=== PATIENT | female | born 1990 | race Two or more races ===

== ENCOUNTER 2020-03-26 14:13 | Observation (INO) | payer MEDICAID ==
[2020-03-26] MEDS ORDERED: CITA-77 PO (14:51)
[2020-03-26] MEDS ORDERED: PREN-96 PO (14:51)
[2020-03-26] MEDS ORDERED: FERR-20 PO (14:53)
[2020-03-26] MEDS ORDERED: FIBECHW2 OR (14:53)
== END 2020-03-26 15:20 | disposition home or self-care (01) | DRG 566 ==
LOC: LDRP 14:13
PROVIDERS: ADMIT Obstetrics & Gynecology; ATTEND Obstetrics & Gynecology
DX: O40.3XX0 Polyhydramnios, third trimester, not applicable or unspecified (principal); O99.323 Drug use complicating pregnancy, third trimester; F12.10 Cannabis abuse, uncomplicated; R11.2 Nausea with vomiting, unspecified; Z3A.35 35 weeks gestation of pregnancy
CPT/HCPCS: 76818; 81002; G0378

== ENCOUNTER 2020-03-31 10:40 | Observation (INO) | payer MEDICAID ==
[~2020-03-31 10:40] MED LIST: CITA-77 PO; FERR-20 PO; FIBECHW2 OR; PREN-96 PO
== END 2020-03-31 11:28 | disposition home or self-care (01) | DRG 566 ==
LOC: LDRP 10:40
PROVIDERS: ADMIT Specialist; ATTEND Specialist
DX: O40.9XX0 Polyhydramnios, unspecified trimester, not applicable or unspecified (principal); Z3A.00 Weeks of gestation of pregnancy not specified
CPT/HCPCS: 76818; G0378

== ENCOUNTER 2020-04-21 09:55 | Observation (INO) | payer MEDICAID ==
[~2020-04-21] VITALS: Ht 170.2 cm; Wt 101.6 kg
== END 2020-04-21 13:05 | disposition home or self-care (01) | DRG 566 ==
LOC: LDRP 09:55
PROVIDERS: ADMIT Obstetrics & Gynecology; ATTEND Obstetrics & Gynecology
DX: O36.63X0 Maternal care for excessive fetal growth, third trimester, not applicable or unspecified (principal); O40.3XX0 Polyhydramnios, third trimester, not applicable or unspecified; Z3A.39 39 weeks gestation of pregnancy
CPT/HCPCS: 59025; 76818; 81002; G0378

== ENCOUNTER 2020-04-26 07:10 | Inpatient (IN) | payer MEDICAID ==
[~2020-04-26] VITALS: Ht 170.2 cm; Wt 101.6 kg
[2020-04-26] MEDS ORDERED: LACT. RINGERS/OXYTOCIN 20UNITS 1,000 ML IV SCH ×2 (08:35→09:00)
[2020-04-26] MEDS ORDERED: LACTATED RINGER'S 1,000 ML IV SCH (08:35)
[2020-04-26] MEDS ORDERED: METHYLERGONOVINE MALEATE 0.2 MG/ML AMP IM PRN ×2 (08:45→09:00)
[2020-04-26] MEDS ORDERED: miSOPROStol 50 MCG per PRE-CUT 1/2 TAB PO PRN ×2 (08:45→09:00)
[2020-04-26] MEDS ORDERED: CARBOPROST TROMETHAMINE 250 MCG/1ML VIAL IM PRN ×2 (08:45→09:00)
[2020-04-26] MEDS ORDERED: PHISODERM TOP SOLN 240ML BTL TOP PRN ×2 (08:45→09:00)
[2020-04-26] MEDS ORDERED: DERMOPLAST 60ML BOTTLE TOP PRN (08:45)
[2020-04-26] MEDS ORDERED: WITCH HAZEL-GLYCERIN PAD TOP PRN (08:45)
[2020-04-26] MEDS ORDERED: LIDOCAINE 1% (LOCAL ANESTH.) PF 5ml SDV IJ ONE ×2 (08:45→09:00)
[2020-04-26] MEDS: LACTATED RINGER'S 1,000 ML IV SCH ×2 (09:00→22:50)
[2020-04-26 09:37] LABS: Basophils # (auto) 0 10 ^3/uL (0-0.2); Basophils % (auto) 0.5 % (0.0-2.0); Eosinophils # (auto) 0.1 10 ^3/uL (0-0.8); Eosinophils % (auto) 1.2 % (0.0-7.0); Hematocrit 37.7 % (36.0-46.0); Hemoglobin 12.5 g/dL (12.2-16.2); Lymphocytes # (auto) 1.2 10 ^3/uL (0.4-5.4); Lymphocytes % (auto) 13.6 % (10.0-50.0); Mean Corpuscular Hemoglobin 29.1 pg (28.0-32.0); Mean Corpuscular Hgb Conc. 33.2 g/dL (32.0-36.0); Mean Corpuscular Volume 87.8 fL (80.0-100.0); Monocytes # (auto) 0.5 10 ^3/uL (0-1.3); Neutrophils # (auto) 6.7 10 ^3/uL (1.6-8.6); Neutrophils % (auto) 78.7 % (37.0-80.0); Platelet Count (auto) 227 10^3/uL (140-450); Red Blood Cells 4.29 10^6/uL (4.0-5.20); Red Cell Distribution Width 15.1 % (11.8-14.3); White Blood Cell 8.6 10^3/uL (4.4-10.8)
[2020-04-26 09:50] LABS: Urine Bacteria NONE SEEN /hpf (None Seen); Urine Blood 2+ /uL (Negative); Urine Specific Gravity 1.013 (1.001-1.035); Urine WBC 1 /hpf (0 - 5)
[2020-04-26 09:56] LABS: Albumin 2.6 g/dL (3.4-5.0); Calcium 8.9 mg/dL (8.5-10.1); INR 0.9 (0.9-1.15); Partial Thromboplastin Time 25.5 sec (23.64-32.05); Potassium 3.9 mmol/L (3.5-5.1)
[2020-04-26 09:57] LABS: Alcohol, Urine < 3.0 mg/dL (0-10); Amphetamine Screen, Urine NEGATIVE (NEGATIVE); Barbiturate Scree,Urine NEGATIVE (NEGATIVE); Benzodiazephine Screen, Urine NEGATIVE (NEGATIVE); Cannabinoid Screen, Urine POSITIVE (NEGATIVE); Cocaine Screen, Urine NEGATIVE (NEGATIVE); Opiate Scree,Urine NEGATIVE (NEGATIVE); Phencyclidine Screen, Urine NEGATIVE (NEGATIVE)
[2020-04-26 10:00] LABS: BUN/Creatinine Ratio 8.6; Bilirubin, Total 0.3 mg/dL (0.2-1.0); Total Protein 6.9 g/dL (6.4-8.2)
[2020-04-26] MEDS ORDERED: PROMETHAZINE HCL 25 MG/ML 1ML IV ONE (15:30)
[2020-04-26] MEDS ORDERED: BUTORPHANOL TARTRATE 2 MG/1 ML VIAL IV ONE (15:30)
[2020-04-26] MEDS ORDERED: LACTATED RINGER'S 1,000 ML IV ONE (18:26)
[2020-04-26] MEDS ORDERED: ePHEDrine SULFATE 50 MG/ML AMP IV ONE ×3 (18:30→20:00)
[2020-04-26] MEDS ORDERED: LIDOCAINE 2%HCL (LOCAL ANESTH.) INJ 20ML MDV ID ONE (18:30)
[2020-04-26] MEDS ORDERED: fentaNYL 200mCg/100ml W ROPIVA 100 ML EPI SCH ×4 (18:30→22:30)
[2020-04-26] MEDS ORDERED: ePHEDrine SULFATE 50 MG/ML AMP ONE (18:30)
[2020-04-26] MEDS ORDERED: NALOXONE HCL 0.4 MG/ML VIAL IV ONE ×3 (18:30→20:00)
[2020-04-26] MEDS ORDERED: fentaNYL 200mCg/100ml W ROPIVA 100 ML EPI ONE (18:31)
[2020-04-26] MEDS ORDERED: SODIUM CHLORIDE 0.9% 500 ML IV PRN (19:13)
[2020-04-27] VITALS (7 sets, daily range): BP systolic 91–106; BP diastolic 45–59
[2020-04-27] MEDS ORDERED: PENICILLIN G POT 5MIL/D5 50ML 50 ML IV ONE (04:00)
--- NOTE | 2020-04-27 05:45 | NUR ---
Respiratory note: RT PAGED OVERHEAD TO L&D RM 5 FOR DELIVERY. 1MIN 6, 5MIN 7, 10MIN 8.
[2020-04-27] MEDS ORDERED: PENICILLIN G POTASSIUM 2,500,000 UNITS in D5W 5% 50 ML IV SCH (08:00)
[2020-04-27] MEDS: ceFAZolin 1GM/50ML 50 ML IV SCH ×2 (08:21→16:18)
--- NOTE | 2020-04-27 10:15 | NUR ---
ATTEMPTED TO AMBULATE PATIENT TO BR, PT UNABLE TO SIT UP, APPEARS PALE AND DIAPHORETIC, PT STATES SHE CANNOT SIT UP WITHOUT FEELING DIZZY OR FEELING OF PASSING OUT. PT LAID DOWN IN BED. PT STATES SHE FEELS BETTER LYING DOWN.
--- NOTE | 2020-04-27 10:18 | NUR ---
STRAIGHT CATH PERFORMED 300ML CLEAR YELLOW URINE, PERICARE COMPLETED IN BED, PADS CHANGED.
--- NOTE | 2020-04-27 10:20 | NUR ---
DR CHO CALLED AND NOTIFIED OF PT BEING UNABLE TO SIT UP WITHOUT DIZZINESS, REVIEWED LOW BPS WITH MD AND THAT PATIENT HAS HAD CONTINUOUS FLUIDS. ORDER RECEIVED FOR STAT CBC, NS, AND TYPE AND CROSS 2 UNITS RBC'S.
[2020-04-27] MEDS ORDERED: SODIUM CHLORIDE 0.9% 1,000 ML IV SCH (10:30)
--- NOTE | 2020-04-27 10:35 | NUR ---
NS 0.9% STARTED AT 125ML/HR.
[2020-04-27 10:42] LABS: Basophils # (auto) 0.1 10 ^3/uL (0-0.2); Eosinophils # (auto) 0 10 ^3/uL (0-0.8); Hemoglobin 8.3 g/dL (12.2-16.2); Monocytes # (auto) 0.6 10 ^3/uL (0-1.3)
[2020-04-27 10:43] LABS: Basophils % (auto) 0.8 % (0.0-2.0); Hematocrit 24.8 % (36.0-46.0); Lymphocytes # (auto) 0.8 10 ^3/uL (0.4-5.4); Lymphocytes % (auto) 5.4 % (10.0-50.0); Mean Corpuscular Hemoglobin 29.3 pg (28.0-32.0); Mean Corpuscular Hgb Conc. 33.4 g/dL (32.0-36.0); Mean Corpuscular Volume 87.9 fL (80.0-100.0); Monocytes % (auto) 3.9 % (0.0-12.0); Neutrophils # (auto) 13.4 10 ^3/uL (1.6-8.6); Neutrophils % (auto) 89.9 % (37.0-80.0); Platelet Count (auto) 199 10^3/uL (140-450); Red Blood Cells 2.82 10^6/uL (4.0-5.20); Red Cell Distribution Width 15.1 % (11.8-14.3); White Blood Cell 14.9 10^3/uL (4.4-10.8)
--- NOTE | 2020-04-27 10:52 | NUR ---
DR CHO ON UNIT REVIEWED LABS AND B/P'S, ORDER RECEIVED TO GIVE 1 UNIT OF PRBC'S.
[2020-04-27] MEDS: IBUPROFEN 600 MG TAB PO PRN ×3 (12:23→19:37)
--- NOTE | 2020-04-27 13:10 | NUR ---
Ambulation: Patient OOB with standby assistance by RN. Patient ambulated to bedside chair with steady gait. Clean gown provided and bed linen changed. Patient ambulated back to bed with steady gait and no distress noted.
--- NOTE | 2020-04-27 13:30 | NUR ---
Sera from [employer] seen PTLeonid
--- NOTE | 2020-04-27 14:15 | NUR ---
REPORT TO BLAISE SUMNER RN
--- NOTE | 2020-04-27 15:17 | NUR ---
Ambulation: Patient OOB with standby assistance by RN. Patient ambulated to bathroom with weak gait. Patient able to void without difficulty. [employer] teaching provided with returned demonstration by patient. Clean gown provided and bed linen changed. Patient ambulated back to bed with steady gait and no distress noted.
--- NOTE | 2020-04-27 19:41 | NUR ---
Pt given flyer and educated on the risks of while having been tested positive for THC. Pt educated on how THC can affect the baby and that no amount is safe for baby. Pt verbalizes understanding.
[2020-04-27 20:32] LABS: Basophils # (auto) 0 10 ^3/uL (0-0.2); Hematocrit 24.5 % (36.0-46.0); Hemoglobin 8.2 g/dL (12.2-16.2); Monocytes # (auto) 0.9 10 ^3/uL (0-1.3); Monocytes % (auto) 5.5 % (0.0-12.0); Nucleated Red Blood Cells % 0.1 %; White Blood Cell 15.6 10^3/uL (4.4-10.8)
[2020-04-27 20:33] LABS: Basophils % (auto) 0.2 % (0.0-2.0); Eosinophils # (auto) 0.1 10 ^3/uL (0-0.8); Eosinophils % (auto) 0.4 % (0.0-7.0); Lymphocytes # (auto) 1.7 10 ^3/uL (0.4-5.4); Lymphocytes % (auto) 10.8 % (10.0-50.0); Mean Corpuscular Hemoglobin 29.1 pg (28.0-32.0); Mean Corpuscular Hgb Conc. 33.7 g/dL (32.0-36.0); Mean Corpuscular Volume 86.4 fL (80.0-100.0); Neutrophils # (auto) 12.9 10 ^3/uL (1.6-8.6); Neutrophils % (auto) 83.1 % (37.0-80.0); Platelet Count (auto) 182 10^3/uL (140-450); Red Blood Cells 2.83 10^6/uL (4.0-5.20); Red Cell Distribution Width 15.9 % (11.8-14.3)
[2020-04-27] MEDS ORDERED: TETANUS-DIPTH-ACEL PERTUSSIS 0.5ML SYR Tdap IM ONE (22:00)
[2020-04-27] MEDS: FERROUS SULFATE 325 MG TAB PO SCH (22:07)
[2020-04-28 01:53] LABS: RPR Non Reactive (Non Reactive)
[2020-04-28] MEDS: IBUPROFEN 600 MG TAB PO PRN ×2 (02:21→05:34)
[2020-04-28 03:12] VITALS: BP 92/53
[2020-04-28] MEDS: FERROUS SULFATE 325 MG TAB PO SCH ×2 (05:34→14:21)
[2020-04-28] MEDS: ceFAZolin 1GM/50ML 50 ML IV SCH (06:21)
--- NOTE | 2020-04-28 06:26 | NUR ---
See paper chart for meds given during [employer] down time from 2300 on 04/27/2020 to 0400 on 04/28/2020.
[2020-04-28] MEDS ORDERED: ESCI20TA51 PO (07:15)
[2020-04-28 07:18] VITALS: BP 94/53
[2020-04-28] MEDS: WITCH HAZEL-GLYCERIN PAD TOP PRN ×2 (07:33→18:40)
[2020-04-28] MEDS: DERMOPLAST 60ML BOTTLE TOP PRN ×2 (07:33→18:40)
--- NOTE | 2020-04-28 08:15 | NUR ---
dr. flores talked to mother of on plan of care double phototherapy for jaundice . mother of complies with plan of care and is formula feeding and understands all plan of care for double phototheraopy. gave formula to mother and she gave to infant at 0800 am
--- NOTE | 2020-04-28 08:45 | NUR ---
Assessment Patient is a 29-year old female who is alert and oriented. Social Service consult regarding positive THC on mom and baby on this admission. Nurse informed me patient and baby tested positive for THC. Discussed with patient UDS and source of positive results. Patient stated she consume edible THC during her last 5 months of due to nauseous. Patient resides with her mother Ramona and will assistance with baby upon discharge. Patient has all supplies as well as car seat for baby and will be bottle feed. Patient has medical insurance for herself and baby and will be following up with provider appt post discharge. Pt has transportation home upon discharge. Due to baby being positive for THC CPS will be contacted. Spoke to Ghazala with CPS. CPS Case Number is [id number].
--- NOTE | 2020-04-28 09:32 | NUR ---
Called Dr. Vines to make aware patient take medication lexpo 20 mg/daily in morning and has not had medication since 04/25/2020. and patient is requesting tylenol for pain. new orders received order patient home medication lexapo 20 mg daily/po and Tylenol 650 mg/po/ q 4 hours needed for pain . Called pharmacist and chin states generic is available citalopram hydrobr ( celexa) 40mg tab /po/daily . Dr. Vines notified and order changed.
[2020-04-28] MEDS ORDERED: CITALOPRAM HYDROBR 20 MG TAB PO SCH (10:00)
[2020-04-28] MEDS: DOCUSATE CALCIUM 240 MG CAP PO SCH (10:29)
[2020-04-28 10:33] VITALS: BP 98/51
[2020-04-28] MEDS: ACETAMINOPHEN 325 MG TAB PO PRN ×2 (10:39→17:02)
[2020-04-28] MEDS: CITALOPRAM HYDROBR 20 MG TAB PO SCH (10:42)
[2020-04-28 15:30] VITALS: BP 101/84
[2020-04-28 19:00] VITALS: BP 112/56
[2020-04-28 23:00] VITALS: BP 105/52
[2020-04-29] MEDS: ACETAMINOPHEN 325 MG TAB PO PRN (02:10)
[2020-04-29 03:00] VITALS: BP 99/55
[2020-04-29 06:08] LABS: Eosinophils # (auto) 0.2 10 ^3/uL (0-0.8); Hemoglobin 7.8 g/dL (12.2-16.2); Lymphocytes # (auto) 1.5 10 ^3/uL (0.4-5.4); Mean Corpuscular Hemoglobin 29.4 pg (28.0-32.0); Monocytes # (auto) 0.5 10 ^3/uL (0-1.3); Red Blood Cells 2.64 10^6/uL (4.0-5.20)
[2020-04-29 06:11] LABS: Basophils # (auto) 0 10 ^3/uL (0-0.2); Basophils % (auto) 0.3 % (0.0-2.0); Eosinophils % (auto) 1.6 % (0.0-7.0); Hematocrit 22.7 % (36.0-46.0); Lymphocytes % (auto) 13.8 % (10.0-50.0); Mean Corpuscular Hgb Conc. 34.2 g/dL (32.0-36.0); Monocytes % (auto) 4.3 % (0.0-12.0); Neutrophils # (auto) 8.9 10 ^3/uL (1.6-8.6); Platelet Count (auto) 180 10^3/uL (140-450); Red Cell Distribution Width 15.9 % (11.8-14.3); White Blood Cell 11.2 10^3/uL (4.4-10.8)
[2020-04-29 06:30] VITALS: BP 110/53
[2020-04-29] MEDS: IBUPROFEN 600 MG TAB PO PRN (06:44)
[2020-04-29] MEDS: FERROUS SULFATE 325 MG TAB PO SCH (06:46)
--- NOTE | 2020-04-29 10:00 | NUR ---
IV removed from right hand, catheter intact, pressure dressing applied, site benign.
[2020-04-29] MEDS: DOCUSATE CALCIUM 240 MG CAP PO SCH (10:16)
[2020-04-29] MEDS: CITALOPRAM HYDROBR 20 MG TAB PO SCH (10:17)
--- NOTE | 2020-04-29 10:39 | NUR ---
Ferrous Sulfate prescription 325mg by mouth TID with 6 refills #90 called into pharmacy of patients choice, [facility] on [address]/
[2020-04-29 11:00] VITALS: BP 103/61
--- NOTE | 2020-04-29 11:08 | NUR ---
Discharge: Discharge instructions given as ordered. Pt encouraged to follow up with [facility] [facility] as instructed. All questions and concerns addressed. Patient verbalized understanding. Medication reconciliation completed and copy given to patient. All required/requested vaccines given and copies of vaccinations given to patient. Patient encouraged to prepare to depart unit.
--- NOTE | 2020-04-29 11:15 | NUR ---
Discharge: Patient ambulated to vehicle with all personal belongings, accompanied by staff and family member. No distress noted at time of departure, no adverse changes in status since initial assessment.
== END 2020-04-29 11:15 | disposition home or self-care (01) | DRG 560 ==
LOC: LDRP 07:10 → OBSVTOIN 08:30 → LDRP 08:34
PROVIDERS: ADMIT Obstetrics & Gynecology; ATTEND Obstetrics & Gynecology
PROC: 10D07Z3 Extraction of Products of Conception, Low Forceps, Via Natural or Artificial Opening (ICD-10-PCS; principal; 2020-04-26)
PROC: 30233N1 Transfusion of Nonautologous Red Blood Cells into Peripheral Vein, Percutaneous Approach (ICD-10-PCS; 2020-04-26)
PROC: 3E0R3BZ Introduction of Anesthetic Agent into Spinal Canal, Percutaneous Approach (ICD-10-PCS; 2020-04-26)
PROC: 00HU33Z Insertion of Infusion Device into Spinal Canal, Percutaneous Approach (ICD-10-PCS; 2020-04-26)
PROC: 0W8NXZZ Division of Female Perineum, External Approach (ICD-10-PCS; 2020-04-26)
DX: O13.4 Gestational [pregnancy-induced] hypertension without significant proteinuria, complicating childbirth (principal); R71.0 Precipitous drop in hematocrit; O69.1XX0 Labor and delivery complicated by cord around neck, with compression, not applicable or unspecified; O77.0 Labor and delivery complicated by meconium in amniotic fluid; Z37.0 Single live birth; Z3A.39 39 weeks gestation of pregnancy; Z79.899 Other long term (current) drug therapy; Z11.59 Encounter for screening for other viral diseases
CPT/HCPCS: 36415; 51702; 59025; 59409; 62282; 80053; 80307; 81001; 81002; 84112; 85025; 85610; 85730; 86592; 86850; 86900; 86901; 86920; 90715; 94760; 94762; 96361; 96365; 96366; 96372; 96375; G0378; J0690; J2540; J2590; J7060